=== PATIENT | male | born 1940 | race Caucasian/White ===

== ENCOUNTER → 2023-05-22 18:16 | Outpatient (REF) | payer OTHER, SELFPAY | LOC: RCS 18:16 | PROVIDERS: ATTENDING PHYSICIAN Internal Medicine Cardiovascular Disease; FAMILY PHYSICIAN Internal Medicine | DX: R01.1 Cardiac murmur, unspecified (principal) | CPT/HCPCS: 93306 ==

== ENCOUNTER 2023-05-30 06:02 | Day surgery (SDC) | payer OTHER, SELFPAY ==
[2023-05-30] VITALS (10 sets, daily range): BP systolic 103–163; BP diastolic 50–70; BMI 26.9
[2023-05-30 06:34] LABS: Glucose - Point of Care 160 mg/dl (70-99)
[2023-05-30] MEDS: NORMOSOL-R 1000 IV (06:57)
[2023-05-30] MEDS: TYLENOL 1000 MG PO (06:57)
--- NOTE | 2023-05-30 09:22 | W.SUR.PREOP ---
Pre-Operative Surgical Note
-
I have examined this patient prior to the performance of the scheduled procedure.
The patient's condition is unchanged from the time of the current History and
Physical and the patient is able to undergo the scheduled procedure.
--- NOTE | 2023-05-30 09:22 | W.IMMPOSTOP ---
Surgical Immed Post Op Note
-
Primary Surgeon: Ritesh Duran MD
Assisting Surgeon: None
Pre-op Diagnosis: Right inguinal hernia
Post-op Diagnosis: Same
Procedure Performed: Robotic right inguinal hernia repair with mesh
Anesthesia Type: General
Specimen / Cultures: None
Estimated Blood Loss: 5 cc
Complications: None
Operative Findings: Moderate sized right indirect inguinal hernia. No direct component, no femoral component, small cord lipoma removed in pieces.
POST OP PLAN:
Will discharge home with an ice pack after voiding.
--- NOTE | 2023-05-30 09:23 | OR.RPT ---
Operative Report
Operative Report
Patient Name: Ariane Victor
: 1940
Date of Operation: 05/30/2023
Preoperative Diagnosis: Reducible Inguinal hernia, right
Postoperative Diagnosis: Same
Procedure(s):
Robotic Inguinal Hernia Repair, right with mesh (BETHANY approach)
Surgeon(s):
Dr. Duran
Customer Manager(s):
CARLI Mayer
Anesthesia: General
Estimated Blood Loss: 5 cc
Urine Output: None
Drains/Lines/Implants: Large 3D Max Bard mid weight mesh
Specimens: None
Indication for surgery: The patient has a history of groin pain and noted on exam to have a right inguinal Hernia. Following review of therapeutic options they has elected to undergo a minimally invasive repair.
Findings at the time of surgery:
Patient had moderate-sized indirect inguinal Hernia. There was no direct or femoral component. There was a small cord lipoma. The inguinal floor was reinforced with a large BARD 3D max mid-weight mesh
Details of the operation:
The patient was brought to the Operating Room and placed in the supine position with the arms tucked. IV antibiotics were infused and Venodyne stockings placed. Following uneventful induction of general endotracheal anesthesia, an orogastric tube
were placed. The abdomen was prepped and draped in the usual sterile fashion. The abdomen was entered using a Veress technique which required 4 pass(es), pneumoperitoneum to 15 mmHg was obtained without difficulty. A 8mm trochar was passed through
the abdominal wall roughly 15 cm cephalad to the inguinal canal. We then confirmed the no inadvertent injury was made while passing the trocar or Veress needle. It was clear the Veress needle had not penetrated the peritoneum on the previous 3
passes. We then placed two additional 8 mm ports in the left upper and right upper quadrants. We then docked the robot with a Prograsper in the left hand port and monopolar scissors in the right. CO2 was noted to be tracking in the preperitoneal
space likely from insufflation during her first 3 attempts. A right inguinal hernia was noted. No hernia defect was noted on the left. There was no adhesions from his prior appendectomy. We then began by creating a flap at the level of the ASIS
laterally working our way medially to the medial umbilical fold. Staying onto the peritoneum we were able to circumferentially dissect around the hernia sac and and peel it off of the underlying spermatic cord and testicular vessels, taking care to
preserve them. Medially we identified the midline pubis as well as Florentin's ligament and ensured to dissect 2 cm below the pubic rim over the bladder. After exposure of the entire myopectineal orifice we identified and reduced: A medium sized
indirect inguinal hernia, no direct inguinal hernia, no femoral hernia, and a medium cord lipoma which was removed
We then fixated a large 3D max mesh with a 2-0 Vicryl stitch at coopers medially and superior medially. The flap was then closed with a running 2-0 barbed monocryl suture ensuring that the tail was cut flush with the medial fat pad so that no barbs
were exposed. During the closure of the flap an Angiocath was inserted and 30 cc of quarter percent Marcaine was instilled. The area in the flap cavity was then evacuated of air confirming that the mesh was flush and there were no folds. A few
small rents in the peritoneum was noted and closed with 2-0 Vicryl. All needles and instruments were then removed and the robot was undocked. The abdomen was then desufflated, and pneumoperitoneum evacuated. All skin sites were then closed with
4-0 Monocryl followed by Dermabond. Counts were correct and overall, the patient tolerated the procedure well and was taken to the Recovery Room postoperatively in stable condition.
I was the attending physician and performed the procedure with assistance of the LAYOUT MAN above. I was present for all portions of the case
Ritesh Duran MD
[2023-05-30 09:42] LABS: Glucose - Point of Care 166 mg/dl (70-99)
[2023-05-30 11:25] LABS: Glucose - Point of Care 164 mg/dl (70-99)
== END 2023-05-30 11:44 | disposition home or self-care (01) ==
LOC: SDS 06:02
PROVIDERS: ATTENDING PHYSICIAN Surgery
DX: K40.90 Unilateral inguinal hernia, without obstruction or gangrene, not specified as recurrent (principal); D17.6 Benign lipomatous neoplasm of spermatic cord
CPT/HCPCS: 49650; 82962; C1781

== ENCOUNTER 2025-02-11 09:22 | Inpatient (IN) | payer OTHER, SELFPAY ==
[2025-02-11] VITALS (25 sets, daily range): BP systolic 92–173; BP diastolic 41–100
--- NOTE | 2025-02-11 05:24 | ED.GENMED ---
History of Present Illness
General
Chief Complaint: Urinary Symptoms
Source: patient
Exam Limitations: none
Time Seen by Provider: 02/11/25 05:20
Nursing documentation reviewed up to this point in time: agreed with
History of Present Illness
History of Present Illness:
84 y/o male with a history of recurrent urinary tract infections, bph, diabetes, htn, hypothroid presents with acute urinary retention and hematuria. Follows with Dr. Gomez. Over the past months, he experienced bladder issues and persistent
infections every three to four months, despite various treatments including medications and cranberry supplements. Recently, a biopsy was performed due to these recurrent issues, which resulted normal findings. However, the patient began
experiencing burning and bleeding approximately 12 to 13 hours ago. He described significant discomfort with difficulty sleeping last night due to the burning pain localized to the pelvic region. He passed blood and clots and finally could not
urinate. The family reports no fever, vomiting, or abdominal pain. The patient has not experienced dizziness or lightheadedness, has been eating and drinking normally, and denied any nausea. The severity of the burning sensation has decreased
somewhat after passing some clots at home.
Review of Systems
Review of Systems
All Other Systems: ROS reviewed and negative except as documented in HPI and ROS
Phy Exam
General Physical Exam
General Presentation: well appearing and no apparent distress
General Skin: warm and dry
ENT Exam
ENT Exam: EOMI
Cardiovascular Exam
Cardiovascular Exam: regular rate/rhythm and no edema
Pulmonary Exam
Pulmonary Exam: lungs clear, no respiratory distress, no rales, no rhonchi, no wheezing and no cough
Gastrointestinal Exam
Gastrointestinal Exam: normal bowel sounds and non tender
Neurological Exam
Neurological Exam: alert, oriented x3 and CN II-XII intact
Skin Exam
Skin Exam: normal color, warm/dry and no rash
Psychiatric Exam
Psychiatric Exam: normal mood/affect
Course
Orders/Labs/Results
Orders:
Orders
02/11/25 05:39
IV Insert/Care/Rem.- Treatment PRN
02/11/25 06:24
Complete Blood Count/With Diff Urgent
Comprehensive Metabolic Panel Urgent
02/11/25 06:25
Oxycodone/Acetaminophen [Percocet 5/325] 1 tablet PO NOW STA
02/11/25 07:00
Urinalysis Reflex To Culture Urgent
Date Specimen was Collected: 02/11/25
Time Specimen was Collected: 04:34
02/11/25 07:07
Electrocardiogram (*1) Urgent
Reason for Study: Other
Other Reason for Exam: hyperkalemia
02/11/25 08:56
Admit/Transfer Patient As Directed
Co-Sign Provider:
Level of Care: Inpatient admission
Assign to:: Medical/Surgical
Physician / Group: Hospitalist
Diagnosis: Acute urinary retention
Reason for Hospitalization: Acute urinary retention
Expected length of stay greater than two midnights?: Yes
ELOS- Estimated Length of Stay in days: 2
I certify the patient meets the requirements for IP care: Yes
02/11/25 08:57
PRN Pain Medication Management As Directed
May give lesser potent ordered pain med per pt: Yes
preference::
Protocol:: Medication orders for pain may be administered in a
manner that supports deferring to patient preference
when the pt is:
- Requesting an ordered lesser potent pain medication.
Least to most potent pain medications are defined
as: acetaminophen < NSAID < tramadol < opioids
(morphine, oxycodone, hydromorphone).
- Requesting a lesser dose of the same medication IF
ORDERED.
- Requesting a less intrusive route of administration
if both routes are prescribed by the provider (PO <
IV).
02/11/25 09:00
Code Status As Directed
Resuscitation Status: Full Code
Abnormal Lab Results
02/11/25
06:24
WBC 13.3 H 10^3/uL
(4.8-10.8)
RBC 3.62 L 10^6/uL
(4.70-6.10)
Hgb 9.7 L g/dL
(13.0-18.0)
Hct 29.3 L %
(39.0-52.0)
MCH 26.8 L pg
(27.0-31.0)
RDW 14.6 H %
(11.5-14.5)
MPV 11.3 H fL
(7.4-10.4)
Abs Immat Gran (auto) 0.1 H 10^3/uL
(0-0.05)
Absolute Neuts (auto) 12.1 H 10^3/uL
(1.4-6.5)
Absolute Lymphs (auto) 0.7 L 10^3/uL
(1.2-3.4)
Immature Gran % 0.6 H %
(0-0.5)
Neutrophils % 90.4 H %
(42.2-75.2)
Lymphocytes % 5.2 L %
(20.5-51.1)
Sodium 126 L mmol/L
(135-145)
Potassium 5.6 H mmol/L
(3.5-5.1)
Chloride 97 L mmol/L
(98-107)
Carbon Dioxide 19 L mmol/L
(22-30)
Glucose 258 H mg/dl
(70-99)
02/11/25 06:24
02/11/25 06:24
Vital Signs
Initial and Last Documented VS:
Initial Vital Signs
Temp Pulse Resp BP Pulse Ox
97.6 F 96 20 150/69 99
02/11/25 03:48 02/11/25 03:48 02/11/25 03:48 02/11/25 03:48 02/11/25 03:48
Last Documented Vital Signs
Temp Pulse Resp BP Pulse Ox
97.6 F 96 20 150/63 100
02/11/25 03:48 02/11/25 03:48 02/11/25 03:48 02/11/25 09:00 02/11/25 09:30
MDM/Problems Addressed
Differential Diagnosis Includes:
ddx include bph, trauma, neurogenic bladder
MDM/Problems Addressed:
84 y/o male with a history of recurrent urinary tract infections, bph, diabetes, htn, hypothroid presents with acute urinary retention and hematuria.
[address] with out flow of bright red blood and some clots with intermittent irrigation.
CBI started.
Perocet for pain which helped with symptoms.
He has no fever.
Urology consulted.
He will require admission for continuous CBI and monitoring.
Hyponatremia noted although corrected with glucose to be 130.
Chronic conditions affecting care:
htn, hlp
*Pulse Oximetry
SaO2: 99
Oxygen Mode of Delivery: Room air
Patient hypoxic: no
*Critical Care Note
Total Time (30-74mins, 75-104mins- exclusive of procedures): Not Applicable
Data Reviewed
Review of Other/Old Records Reveals: Records (no prior discharge summary for review )
Source: patient and records
ED Attending Note
-
Portions of this chart may have been created with voice recognition software.� Occasional wrong word or��sound alike� substitutions may have occurred due to the inherent limitations of voice recognition software.
Discharge Plan
Departure
Patient Disposition: Admit
Date of Disposition: 02/11/25
Time of Disposition: 07:27
Admit to: Med/Surg
Presentation/result/management discussed w/ accepting MD/DO: Hospitalist
Patient with high blood pressure during this ER visit?: Yes
Condition: Fair
Discharge Problem:
Acute urinary retention, Gross hematuria
Interventions
Interventions:
*Risk Screen - Suicide Last Done: 02/11/25 04:01
*General Assessment Last Done: 02/11/25 04:32
*Neglect/Abuse Screening Last Done: 02/11/25 04:00
*ED- Fall Risk Assessment Last Done: 02/11/25 03:57
*ED COVID-19 Vaccine History Last Done: 02/11/25 03:57
*ED Influenza Vaccine History Last Done: 02/11/25 03:57
ED-Male Genitourinary Assessment Last Done: 02/11/25 04:32
[2025-02-11] MEDS: PERCOCET 5/325 1 TABLET PO (06:34)
[2025-02-11 06:45] LABS: Hematocrit 29.3 % (39.0-52.0); Hemoglobin 9.7 g/dL (13.0-18.0); Mean Corp Hgb Conc. 33.1 g/dL (33.0-37.0); Mean Corpuscular Volume 80.9 fL (80.0-94.0); Nucleated Red Blood Cells % 0 % (-); Platelet Count 240 10^3/uL (130-400); Red Cell Dist. Width 14.6 % (11.5-14.5)
[2025-02-11 06:58] LABS: ALT (SGPT) 16 U/L (0-50); AST (SGOT) 21 U/L (17-59); Albumin 4.1 g/dl (3.5-5.0); Alkaline Phosphatase 62 U/L (38-126); Blood Urea Nitrogen 18 mg/dl (9-20); Calcium 8.8 mg/dl (8.4-10.2); Carbon Dioxide 19 mmol/L (22-30); Chloride 97 mmol/L (98-107); Glucose 258 mg/dl (70-99); Potassium 5.6 mmol/L (3.5-5.1); Sodium 126 mmol/L (135-145); Total Protein 6.4 g/dl (6.3-8.2); eGFR > 60.00
--- NOTE | 2025-02-11 07:40 | CONS.URO ---
Consultation
-
Date/Time Consultation Performed: 02/11/2025 0715
Requesting Provider: ED
Performing Provider: Kuldeep
Reason for Consultation: hematuria
Medical History
History of Present Illness
84 yo male patient of Dr Lucas underwent 'bladder biopsy' on 02/01/2025 at '[facility] in [place]' according to son.
Hematuria with clots began last evening -- was brought to [facility] ED for convenience.
Past Medical History
Past Medical History: HTN, Hypercholesterolemia, NIDDM and Other (glaucoma)
Past Surgical History: Appendectomy and Other (right hernia repair 2023)
Allergies/Home Medications
Allergies
Allergy/AdvReac Type Severity Reaction Status Date / Time
No Known Allergies Allergy Unverified 05/30/23 06:42
Home Medications
�Medication �Instructions �Recorded �Confirmed �Type
Vitamin D3 1 dose PO WEEKLY 05/28/23 05/30/23 History
amlodipine 10 mg tablet 5 mg PO DAILY 05/28/23 05/28/23 History
aspirin 81 mg chewable tablet 81 mg PO DAILY 05/28/23 05/28/23 History
atorvastatin 40 mg tablet 40 mg PO DAILY 05/28/23 05/28/23 History
brinzolamide 1 %-brimonidine 0.2 % 1 drp ophthalmic (eye) TID 05/28/23 05/28/23 History
eye drops,suspension (Simbrinza)
carvedilol 12.5 mg tablet 12.5 mg PO BID 05/28/23 05/28/23 History
cyclosporine 0.05 % eye drops in a 1 drp ophthalmic (eye) Q12H 05/28/23 05/28/23 History
dropperette (Restasis)
diclofenac sodium 1 % topical gel 1 topical . DIRECTED 05/28/23 History
ferric maltol 30 mg capsule 30 mg PO BID 05/28/23 05/28/23 History
(Accrufer)
latanoprost 0.005 % eye drops 1 drp ophthalmic (eye) QPM 05/28/23 05/28/23 History
levothyroxine 75 mcg tablet 75 mcg PO DAILY 05/28/23 05/28/23 History
linagliptin 5 mg tablet (Tradjenta) 5 mg PO DAILY 05/28/23 05/28/23 History
metformin 500 mg tablet 500 mg PO BID 05/28/23 05/30/23 History
valsartan 80 mg tablet 120 mg PO BID 05/28/23 05/30/23 History
acetaminophen 325 mg tablet 650 mg (2 x 325 mg) PO Q6HPRN PRN 05/30/23 Rx
mild pain #14 tabs
ibuprofen 600 mg tablet 600 mg PO Q6H PRN pain #14 tabs 05/30/23 Rx
Physical Exam
Vital Signs
Vital Signs
Temp Pulse Resp BP Pulse Ox
97.6 F 96 20 153/66 100
02/11/25 03:48 02/11/25 03:48 02/11/25 03:48 02/11/25 05:56 02/11/25 06:30
Lab / Testing Results
Laboratory Results
02/11/25 06:24
02/11/25 06:24
Physical Exam
elderly male in ED bed
hard of hearing
Genito-urinary: Hill Catheter (with CBI -- pale red outflow)
Assessment / Plan
-
Hematuria s/p TURBT
Rec: CBI until outflow is pink and consistently clot-free then d/s WITH HILL -- pt to f/u with his urologist at [facility]
--- NOTE | 2025-02-11 07:46 | HPS.HSE ---
Addendum entered and electronically signed by Ayo Casey MD 02/11/25 10:10:
Seen and examined by me independently in collaboration with the medial resident Dr. Cuellar.
Past medical history/social history/medication/allergies reviewed.
Lab data and imaging data reviewed.
Limited historian because of language barrier. Grandson present at the bedside
Patient identity and cystoscopy exam and bladder biopsy suspect chronic Recurrent UTIs 10 days ago. Denies any immediate postbiopsy bleeding. Was put on 3 days of ciprofloxacin as prophylaxis. Started to have hematuria with thick clots and
retention of urine since yesterday. Had complete urinary retention with pain so presented with clot retention. Had Hill catheter placed and CBI started. Still gross hematuria.
He denies any post bladder biopsy dysuria, frequency or retentive symptoms. No fever or chills. Not on any anticoagulants. On aspirin.
Denies any nausea vomiting.
Nontoxic. Alert and oriented.
S1 plus S2 heard regular without tachycardia. Chest clear. Abdomen some suprapubic discomfort but otherwise benign.
Trace bilateral lower extremity edema. Grossly nonfocal neurologically.
Lab data noted.
Hematuria with acute clot retention status post recent bladder biopsy. Unclear etiology for late bleeding complication. Rule out UTI. Check UA with reflex culture. Continue with bladder irrigation. Appreciate urology input. Plan is to continue
CBI till his hematuria improves and goes home on Hill catheter.
Hyponatremia-moderately low. Suspect probably secondary to urinary retention. Repeat BMP post Hill catheter insertion.
Hyperkalemia-again suspect secondary to urinary retention. Hold valsartan. Repeat BMP post Hill catheter insertion.
Diabetes mellitus-hold metformin and continue Tradjenta if available
Full code.
Original Note:
Family Physician
-
Family Physician: Bhupinder Ryan
Chief Complaint
-
Acute urinary retention
History of Present Illness
84-year-old male with past medical history of hypertension, hyperlipidemia, NIDDM, hyperlipidemia, glaucoma presented to the ER reporting acute urinary retention, hematuria and dysuria. Patient speaks [place], I communicated with him and in [place],
is seen along with his grandson at bedside who also translated for him. The symptoms started yesterday at around 3 PM, patient tried to use the restroom but was not able to void completely, reports having decreased urinary stream and hematuria. He
was not able to sleep all night because of pain due to retention (suprapubic pain). Patient was seen by Dr. Gomez with Mg 10 days ago, underwent biopsy, reports it was normal. Patient had frequent UTIs in the past couple of years. Patient
denies lightheadedness/dizziness, chest pain, SOB, leg pain, bowel issues, no constipation, fever/chills, trauma/falls. Patient is on aspirin.
ED course�vital stable, afebrile, elevated white count 13.3, hemoglobin�9.7, sodium�126, potassium�5.6, BUN/creatinine�18/1.1, glucose 258.
Patient was started on CBI.
Medical History
Past Medical History
Past Medical History: Reports HTN, Hypercholesterolemia, Hypothyroidism and NIDDM
Past Surgical History: Reports Appendectomy and Other (Bladder biopsy, inguinal hernia repair)
Social History
Tobacco: Non-smoker
Alcohol: None
Drug: None
Personal:
Living: With Family
Employment: Not Employed
Family History
Family History: Not pertinent
Allergies / Home Medications
Allergies reflects when Allergies were last updated in [email or web address].
Home Medications with original date entered in [email or web address]
Allergy/Medication List:
Allergies
Allergy/AdvReac Type Severity Reaction Status Date / Time
No Known Allergies Allergy Unverified 05/30/23 06:42
Home Medications
aspirin 81 mg chewable tablet 81 mg PO DAILY Blood Clot Prevention/Tx 05/28/23
atorvastatin 40 mg tablet 40 mg PO DAILY High Cholesterol 05/28/23
brinzolamide 1 %-brimonidine 0.2 % eye drops,suspension (Simbrinza) 1 drp BOTH EYES BID Eye Condition 05/28/23
carvedilol 12.5 mg tablet 18.75 mg PO BID Heart Disease/Condition 05/28/23
cyclosporine 0.05 % eye drops in a dropperette (Restasis) 1 drp BOTH EYES Q12H Eye Condition 05/28/23
latanoprost 0.005 % eye drops 1 drp BOTH EYES QPM Eye Condition 05/28/23
levothyroxine 75 mcg tablet 75 mcg PO DAILY Thyroid 05/28/23
linagliptin 5 mg tablet (Tradjenta) 5 mg PO DAILY Diabetes 05/28/23
metformin 500 mg tablet 500 mg PO BID Diabetes 05/28/23
amlodipine 5 mg tablet (Norvasc) 5 mg PO DAILY Blood Pressure 02/11/25
dorzolamide 22.3 mg-timolol 6.8 mg/mL eye drops (Cosopt) 1 drp BOTH EYES BID Eye Condition 02/11/25
ergocalciferol (vitamin D2) 1,250 mcg (50,000 unit) capsule 1,250 mcg PO QWEEK Supplement 02/11/25
tamsulosin 0.4 mg capsule (Flomax) 0.4 mg PO DAILY Urinary Issue 02/11/25
valsartan 160 mg tablet 160 mg PO BID Blood Pressure 02/11/25
Review of Systems
-
A 12 point ROS was completed and negative except as noted: Yes
Physical Exam
Vital Signs
Vital Signs
Temp Pulse Resp BP Pulse Ox
97.6 F 96 20 153/66 100
02/11/25 03:48 02/11/25 03:48 02/11/25 03:48 02/11/25 05:56 02/11/25 06:30
Physical Exam
General: No Apparent Distress
HEENT: NormoCephalic and Atraumatic
Respiratory: Clear
Cardiac: S1/S2 and Regular Rhythm
GI: Soft, Non Tender, Non Distended and Normal Bowel Sounds
Genito-urinary: Continuous Bladder Irrigation
Skin: Warm and Dry
Neuro: Awake, Alert, Oriented and AO x 3
Laboratory Results
-
02/11/25 06:24
02/11/25 06:24
Laboratory Results
Total Bilirubin 0.6 mg/dl (0.2-1.3) 02/11/25 06:24
AST 21 U/L (17-59) 02/11/25 06:24
ALT 16 U/L (0-50) 02/11/25 06:24
Alkaline Phosphatase 62 U/L (38-126) 02/11/25 06:24
Impression/Plan
-
IMPRESSION:
84-year-old male with past medical history of hypertension, hyperlipidemia, NIDDM, glaucoma presenting with acute urinary retention, hematuria.
PLAN:
#Acute urinary retention
#Hematuria
Patient is s/p bladder biopsy for frequent UTIs/dysuria 10 days ago.
Urology consulted
Patient already started on CBI
Continue until outflow is pink/clot free.
Will hold off aspirin
#Dysuria
#Elevated white count
Likely due to UTI, patient reports having frequent UTIs in the past year.
UA pending, follow urine cultures
Will start on Rocephin
Monitor white count, fever curve
#Hyponatremia
#Hyperkalemia
Likely due to acute urinary retention
Will check BMP in 6 hours
No evidence of MACY
#NIDDM
Can continue metformin
Continue linagliptin
Will add SSI
#Hypothyroidism
Continue levothyroxine
#Essential hypertension
Continue amlodipine, valsartan, carvedilol
#Glaucoma
Continue dorzolamide�timolol eyedrops, latanoprost eyedrops.
#Hyperlipidemia
Continue atorvastatin
Diet�carb controlled
DVT prophylaxis�SCDs
Full code
[2025-02-11 13:05] LABS: Glucose - Point of Care 196 mg/dl (70-99)
[2025-02-11] MEDS: ROCEPHIN 1000 MG IV (13:49)
[2025-02-11 14:02] LABS: Hematocrit 26.3 % (39.0-52.0); Hemoglobin 8.5 g/dL (13.0-18.0)
[2025-02-11 14:25] LABS: Blood Urea Nitrogen 21 mg/dl (9-20); Calcium 8.5 mg/dl (8.4-10.2); Carbon Dioxide 19 mmol/L (22-30); Chloride 98 mmol/L (98-107); Glucose 170 mg/dl (70-99); Potassium 4.3 mmol/L (3.5-5.1); Sodium 122 mmol/L (135-145); eGFR > 60.00
[2025-02-11] MEDS: COREG PO ×2 (15:25→21:42)
--- NOTE | 2025-02-11 15:25 | PTCARENOTE ---
Rn admissions coordinator-Patient admission assessment completed remotely via phone with CATRACHITA, who indicated that patient is vegetarian. Called to primary nurse Marjorie and indicated that patient is a fall risk, and vegetarian.
--- NOTE | 2025-02-11 15:50 | PTCARENOTE ---
Pt received from ED and pulled over from stretcher to bed. Temp 101.2F, HR 113. BP 169/100. Md made aware. PRN Tylenol ordered and administered. CBI in place on admission. CBI clotted and pt moaning out in pain. Orders to irrigate obtained. CBI
irrigated by nursing and continues to obstruct. Urology notified. Dr. Walton saw pt and continued irrigating CBI. New orders obtained and pt set to OR at this time. Pt is non-Australian speaking. Family made aware and sent to waiting area. Thorough
wound assessment and weight unable to be obtained while on unit. Any discrepancy in CBI output is due to excessive irrigation by both nursing staff and urology.
[2025-02-11] MEDS: TYLENOL 650 MG PO (17:07)
--- NOTE | 2025-02-11 17:50 | PTCARENOTE ---
Pt received from ED and pulled to bed from ED stretcher. Pt temp 101.2F, HR 113, BP 169/100. Md made aware. PRN tylenol ordered and administered. The CBI in place clotted and pt moaning out in pain. Orders to irrigate obtained. CBI irrigated by
nursing staff with many clots. Pt remains uncomfortable. Urology notified and Dr. Walton saw pt @bedside who continued to hand irrigate. More orders obtained but pt sent to OR @this time. Family made aware and sent to waiting area. Throough wound
assessment unable to be obtained due to direct pt care. Any discrepancy in CBI output is due to excessive irrigation both by nursing staff and urology.
[2025-02-11 17:56] LABS: Glucose - Point of Care 194 mg/dl (70-99)
--- NOTE | 2025-02-11 17:57 | W.PN.UPDATE ---
Update Note
Progress Note Update
ctsp- fever/tachy/non draining may
see dr murillo's earlier note
it appears all day may has been functioning marginally
pt now with abd distension /tachy and fever
hand irrigated- large amount of clot recovered with improved lower abd exam- but still cath fouling with blood- clot
spoke with family/med team and anesthesia
very high risk situation- but plan to proceed to OR for cysto/clot evacuation
possibility of bladder perf reviewed (although do not suspect currently)
need for blood transfusion/IMU care and sepsis also discussed
consent signed- to OR when room available
--- NOTE | 2025-02-11 18:04 | W.CON.NEPH ---
Consultation
-
Date/Time Consultation Requested: 02/11/251726
Date/Time Consultation Performed: 02/11/251744
Requesting Provider: Ayo Roach
Performing Provider: Chhaya Stone
Reason for Consultation: Hyponatremia
Medical History
-
Chief Complaint: Acute urinary retention
History of Present Illness:
84-year-old male with past medical history of hypertension on amlodipine, carvedilol, valsartan, hyperlipidemia on atorvastatin, NIDDM metformin, tradjenta, Hypothyroidism on levothyroxine, glaucoma presented to the ER reporting acute urinary
retention, hematuria and dysuria on 02/11 Am. The Patient was seen by Dr. Gomez with Mg 10 days ago and underwent Bladder biopsy, reports it was normal. however patient had difficulty to urinate since yesterday. He noted to have acute
clot retention, urology started him on CBI. However he still continued to have the bleeding with decrease in the hemoglobin hence urology [facility] On admission his sodium was at 126, potassium 5.6, repeat labs this
afternoon at 122 hence nephrology consulted. patient reportedly in a lot of pain since the admission and he hasn't been eating or drinking as much today. According to the family patient usually drinks good amount of fluid, they do not recall
hyponatremia before. Patient does have a history of recurrent UTI in the past couple of years. no reported history of nausea or vomiting. No chest pain or shortness of breath or abdominal pain. No fevers or cough. history is limited due to
language barrier. History of cancer the chart and from the family.
Past Medical History
HTN, Hypercholesterolemia, Hypothyroidism and NIDDM
Past Surgical History: Appendectomy and Other ( Bladder biopsy, inguinal hernia repair)
Social History
Tobacco: Non-Smoker
Alcohol: None
Drug: None
Personal:
Living: With Family
Employment: Not Employed
Family History
Family History: Not Pertinent
Allergies / Home Medications
Allergy/AdvReac Type Severity Reaction Status Date / Time
No Known Allergies Allergy Unverified 05/30/23 06:42
�Medication �Instructions �Recorded �Confirmed �Type
aspirin 81 mg chewable tablet 81 mg PO DAILY Blood Clot 05/28/23 02/11/25 History
Prevention/Tx
atorvastatin 40 mg tablet 40 mg PO DAILY High Cholesterol 05/28/23 02/11/25 History
brinzolamide 1 %-brimonidine 0.2 % 1 drp BOTH EYES BID Eye Condition 05/28/23 02/11/25 History
eye drops,suspension (Simbrinza)
carvedilol 12.5 mg tablet 18.75 mg PO BID Heart 05/28/23 02/11/25 History
Disease/Condition
cyclosporine 0.05 % eye drops in a 1 drp BOTH EYES Q12H Eye Condition 05/28/23 02/11/25 History
dropperette (Restasis)
latanoprost 0.005 % eye drops 1 drp BOTH EYES QPM Eye Condition 05/28/23 02/11/25 History
levothyroxine 75 mcg tablet 75 mcg PO DAILY Thyroid 05/28/23 02/11/25 History
linagliptin 5 mg tablet (Tradjenta) 5 mg PO DAILY Diabetes 05/28/23 02/11/25 History
metformin 500 mg tablet 500 mg PO BID Diabetes 05/28/23 02/11/25 History
amlodipine 5 mg tablet (Norvasc) 5 mg PO DAILY Blood Pressure 02/11/25 02/11/25 History
dorzolamide 22.3 mg-timolol 6.8 1 drp BOTH EYES BID Eye Condition 02/11/25 02/11/25 History
mg/mL eye drops (Cosopt)
ergocalciferol (vitamin D2) 1,250 1,250 mcg PO QWEEK Supplement 02/11/25 02/11/25 History
mcg (50,000 unit) capsule
tamsulosin 0.4 mg capsule (Flomax) 0.4 mg PO DAILY Urinary Issue 02/11/25 02/11/25 History
valsartan 160 mg tablet 160 mg PO BID Blood Pressure 02/11/25 02/11/25 History
Review of Systems
-
All other systems: Negative unless noted
Physical Exam
Vital Signs
Vital Signs
Temp Pulse Resp BP Pulse Ox
101.2 F H 113 18 167/100 95
02/11/25 15:22 02/11/25 15:22 02/11/25 15:22 02/11/25 15:22 02/11/25 15:22
Lab Results
WBC 13.3 10^3/uL (4.8-10.8) H 02/11/25 06:24
RBC 3.62 10^6/uL (4.70-6.10) L 02/11/25 06:24
Plt Count 240 10^3/uL (130-400) 02/11/25 06:24
Sodium 122 mmol/L (135-145) L 02/11/25 13:53
Potassium 4.3 mmol/L (3.5-5.1) 02/11/25 13:53
Chloride 98 mmol/L (98-107) 02/11/25 13:53
Carbon Dioxide 19 mmol/L (22-30) L 02/11/25 13:53
BUN 21 mg/dl (9-20) H 02/11/25 13:53
Creatinine 1.2 mg/dL (0.7-1.3) 02/11/25 13:53
eGFR > 60.00 02/11/25 13:53
Glucose 170 mg/dl (70-99) H 02/11/25 13:53
Calcium 8.5 mg/dl (8.4-10.2) 02/11/25 13:53
Albumin 4.1 g/dl (3.5-5.0) 02/11/25 06:24
Physical Exam
General: Awake, Alert, Oriented, AOx3, No Distress and Nontoxic
HEENT: EOMI, Anicteric, Facial Symmetry and Trachea Midline
Respiratory: Clear and Normal Excursion
Cardiac: S1/S2, Regular Rate/Rhythm and No Edema
Breast: Deferred by me
Abdomen: Soft, Nontender and Nondistended
Musculoskeletal: No Cyanosis and No Edema
Skin: No Rash
Neuro: Nonfocal/Grossly Intact
Psych: Appropriate
Data Reviewed
-
Labs: Labs Reviewed by me, Discussed with Nurse and Discussed with Family
Assessment/Plan
-
IMP:
HYponatremia
Hyperkalemia
Acute urinary retention
Gross Hematuria
Anemia
Patient is s/p bladder biopsy for frequent UTIs/dysuria 10 days ago.
mild non gap met acidosis
h/o recurrent UTIs
Dysuria
Elevated white count
NIDDM
Hypothyroidism
Essential hypertension
Glaucoma
Hyperlipidemia
Plan:
A/w acute urinary retention with a clot
Ongoing hematuria despite CBI-plan noted for OR
Worsening hyponatremia, no previous baseline
Check S osmo, TSH, can not get urine studies while on CBI
need labs post op, may start hypertonic saline tonight
hyperkalemia is better
bp stable
start FR 48 ounces/day
follow h/h, prn trasnfusion
abx per primary, febrile this pm
d/w family
d/w nursing
[2025-02-11 18:15] LABS: Hematocrit 24.5 % (39.0-52.0); Hemoglobin 8.4 g/dL (13.0-18.0)
--- NOTE | 2025-02-11 19:22 | W.IMMPOSTOP ---
Surgical Immed Post Op Note
-
Primary Surgeon:
tata
Assisting Surgeon:
Pre-op Diagnosis:
clot retention
Post-op Diagnosis:
same
Procedure Performed:
cysto/clot evac and fulguration
Anesthesia Type:
gen
Specimen / Cultures:
none
Estimated Blood Loss:
400cc old clot/ 20 cc of new bleeding
Complications:
none
Operative Findings:
large organized blot
old bx site actively bleeding along with some sites at BN and prostate
to pacu- then IMU
to transfuse 2 units PRBC's
[2025-02-11 19:48] LABS: Glucose - Point of Care 166 mg/dl (70-99)
[2025-02-11] MEDS: COLACE PO (21:42)
[2025-02-11 21:46] LABS: Hematocrit 21.9 % (39.0-52.0); Hemoglobin 7.1 g/dL (13.0-18.0)
[2025-02-11 22:02] LABS: Blood Urea Nitrogen 26 mg/dl (9-20); Calcium 7.9 mg/dl (8.4-10.2); Carbon Dioxide 18 mmol/L (22-30); Chloride 101 mmol/L (98-107); Glucose 166 mg/dl (70-99); Potassium 4.7 mmol/L (3.5-5.1); Sodium 125 mmol/L (135-145); eGFR 50.18
--- NOTE | 2025-02-11 22:05 | PTCARENOTE ---
Dr. Buckner updated on most recent lab results. Will hold NSS@100ml/hr until blood transfusion is complete. Will repeat labs upon completion of blood transfusion.
--- NOTE | 2025-02-11 22:30 | PTCARENOTE ---
Received pt post op from OR. Pt post cysto with CBI in place. Pt drowsy, easily arousable. Pt is non Taiwanese speaking, Family at bedside to assist translate. Per family, pt is at baseline mentation, AAOx3, slightly forgetful to time due to surgery.
HR in the 90' in NSR with frequent PAC's on the monitor. POX 98% on RA. Lungs clear. + bowel. 24fr [address] Hill with CBI in place draining clear yellow. Left AC int capped. Left wrist int capped. Knee high seq in place. Rectal temp upon arrival
100.4. Pt positioned per comfort. Lab work obtained. Pt denies any complaints of pain at this time. call phillips in reach. Will continue to monitor.
--- NOTE | 2025-02-11 22:30 | PTCARENOTE ---
Repeat lab work reviewed. hgb 7.1. Current temp 99.5. Jose BRUNSON notified, ok to start blood transfusion. First unit now infusing as ordered. Pt sleeping comfortably. Family at bedside. Will continue to monitor.
[2025-02-11] MEDS: RESTASIS 0.05% OPHTHALMIC EMULSION BOTH EYES (23:09)
[2025-02-11] MEDS: TRUSOPT 2% OPHTHALMIC SOLUTION BOTH EYES (23:09)
[2025-02-11] MEDS: TIMOPTIC 0.5% OPHTHALMIC SOLUTION BOTH EYES (23:09)
[2025-02-11] MEDS: XALATAN OPHTHALMIC SOLUTION BOTH EYES (23:09)
[2025-02-11 23:26] LABS: Glucose - Point of Care 193 mg/dl (70-99)
[2025-02-12] VITALS (17 sets, daily range): BP systolic 98–151; BP diastolic 45–128; BMI 22.8
--- NOTE | 2025-02-12 00:54 | PTCARENOTE ---
First unit of blood transfused without complication. 2nd unit now infusing. Vital signs stable. CBI running clear. Pt continues to sleep, denies any complaints. Family remains at bedside. Will continue to monitor.
[2025-02-12] MEDS: OFIRMEV 100 IV (01:51)
[2025-02-12 05:23] LABS: Glucose - Point of Care 156 mg/dl (70-99)
[2025-02-12] MEDS: NOVOLOG FLEXPEN-LOW RESISTANCE 1 UNITS SC ×3 (05:23→17:53)
[2025-02-12 05:49] LABS: Hematocrit 28.2 % (39.0-52.0); Hemoglobin 9.7 g/dL (13.0-18.0); Mean Corp Hgb Conc. 34.4 g/dL (33.0-37.0); Mean Corpuscular Volume 81.3 fL (80.0-94.0); Nucleated Red Blood Cells % 0 % (-); Platelet Count 145 10^3/uL (130-400); Red Cell Dist. Width 14.7 % (11.5-14.5)
[2025-02-12 06:42] LABS: ALT (SGPT) 13 U/L (0-50); AST (SGOT) 21 U/L (17-59); Albumin 3.1 g/dl (3.5-5.0); Alkaline Phosphatase 45 U/L (38-126); Blood Urea Nitrogen 29 mg/dl (9-20); Calcium 8.1 mg/dl (8.4-10.2); Carbon Dioxide 18 mmol/L (22-30); Chloride 103 mmol/L (98-107); Glucose 139 mg/dl (70-99); Potassium 4.8 mmol/L (3.5-5.1); Sodium 128 mmol/L (135-145); Total Protein 5.3 g/dl (6.3-8.2); eGFR 46.19
[2025-02-12] MEDS: NSS IV (06:45)
[2025-02-12] MEDS: NSS 1000 IV ×2 (06:45→17:46)
--- NOTE | 2025-02-12 06:57 | W.PN.URO.CBU ---
Today's Communication / Plan
-
wean CBI
continue iv antibx
trend wbc/cr/hgb
Assessment / Plan
-
gross hematuria and clot retention after bladder bx- s/p cysto- clot evac
hx of recurrent UTI's- fevers
EDY
unfortunately- no urine sent from ER- now will prob not be helpful
suspect fevers due to UTI- continue antibx per med team
suspect EDY due to events of yesterday- will trend
if fevers persist or renal function does not improve over the next 24hrs- will need non contrast CT
urologic plan is once urine clear (CBI today- stop at midnight)- discharge with may and follow up iwth established urologist
Diagnosis
-
Date of Service: February 12, 2025
-
Patient Diagnosis:
hx of recurrent UTI
s/p bladder bx
clot urinary retention
Post Op Day:
cysto/clot evac 02/11
Subjective
-
pt more comfortable
urine clear on minimal drip cbi
received 2 units of prbc's
cr up slightly to 1.5
still with intermittnet fevers
Objective
-
Vital Signs
Temp Pulse Resp BP Pulse Ox
100.2 F 80 21 140/128 99
02/12/25 06:41 02/12/25 06:30 02/12/25 06:30 02/12/25 06:00 02/12/25 06:30
Intake and Output
02/10/25 02/11/25 02/12/25
06:59 06:59 06:59
Intake Total 1400 / 1400
Output Total 400 / 400 48869 / 14367
Balance -400 / -400 -08716 / -95919
Intake:
IV fluids (Total) 300 / 300
nss 200 / 200
IV piggybacks 100 / 100
Blood products 500 / 500
Blood Product Amount Infused ( 500 / 500
mL)
Packed Rbc Leukoreduced Unit 250 / 250
[id number]
Packed Rbc Leukoreduced Unit 250 / 250
[id number]
Output:
True Urine Output from CBI 400 / 400 98279 / 06690
Laboratory Results
02/12/25 05:12
Review of Systems
-
Unable to obtain full review of systems at this time due to: Language Barrier
Physical Exam
-
General - no acute distress
Abdomen - soft, non-tender
Genitalia - may in place- urine yellow
[2025-02-12] MEDS: LIPITOR 40 MG PO (09:23)
[2025-02-12] MEDS: COLACE 100 MG PO ×2 (09:23→20:27)
[2025-02-12] MEDS: FLOMAX 0.4 MG PO (09:23)
[2025-02-12] MEDS: NORVASC 5 MG PO (09:23)
[2025-02-12 09:26] LABS: Glucose - Point of Care 149 mg/dl (70-99)
[2025-02-12] MEDS: TYLENOL 650 MG PO ×2 (09:35→20:26)
[2025-02-12] MEDS: COREG 18.75 MG PO ×2 (09:35→20:27)
[2025-02-12] MEDS: SYNTHROID 75 MCG PO (09:35)
[2025-02-12] MEDS: JANUVIA 100 MG PO (09:36)
[2025-02-12] MEDS: TRUSOPT 2% OPHTHALMIC SOLUTION 1 DROP BOTH EYES ×2 (09:42→22:21)
[2025-02-12] MEDS: TIMOPTIC 0.5% OPHTHALMIC SOLUTION 1 DROP BOTH EYES ×2 (09:42→22:21)
[2025-02-12] MEDS: RESTASIS 0.05% OPHTHALMIC EMULSION 1 DROPS BOTH EYES ×2 (09:43→22:20)
[2025-02-12 10:23] LABS: Hematocrit 28.6 % (39.0-52.0); Hemoglobin 9.5 g/dL (13.0-18.0)
[2025-02-12 10:30] LABS: Glycohemoglobin (HgbA1c) 7.2 % (4.0-5.9)
[2025-02-12] MEDS: STERILE WATER FOR INJECTION 10 ML IV (12:32)
[2025-02-12] MEDS: ROCEPHIN 1000 MG IV (12:32)
[2025-02-12 12:41] LABS: Glucose - Point of Care 172 mg/dl (70-99)
--- NOTE | 2025-02-12 12:56 | CM ---
Initial assessment completed with akrlnaxn-oz-zch. Patient lives with his , son and D-I-L in a 2 story plus basement home with B/B on 1st, 2 steps to enter. [employer] patient was independent in ambulation with a SPC and required assistance with ADL's.
He also has a transport chair, SC and grab bars in the bathroom. He receives Waiver services 8 hours/day for 7 days a week. They assist with bathing, hygiene and household duties. No HC-POA. No VA benefits. No psychiatric hospitalizations. PCP is
Dr. Bhupinder Ryan. Pharmacy is [facility] in [place]. Discharge POC: TBD. Anticipate Home w no needs vs home with HH RN.
[2025-02-12 13:29] LABS: Glucose - Point of Care 142 mg/dl (70-99)
--- NOTE | 2025-02-12 14:27 | PTCARENOTE ---
Pt continues with clear urine with CBI, order to complete cbi at midnight per Dr. Walton. Pt given Tylenol for fever earlier in shift. RN relayed to Dr. Casey to remove eye drops Alphagan and Azopt from chart- pt does not take these at home and they
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 RN confirmed eye drops with family.
--- NOTE | 2025-02-12 14:44 | W.PN.HOSP.TC ---
Today's Communication/Plan
-
[facility]
Continue IV antibiotics
Assessment / Plan
Assessment / Plan
Gross hematuria with acute clot urinary retention
Status post bladder biopsy 10 days ago
Patient had significant bleeding causing acute blood loss anemia requiring blood transfusion. Needed emergency cystoscopy and fulguration of the bleeding site and clot evacuation.
Today urine is clear on CBI. Continue CBI per urology. Blood count stable post transfusion.
Fever with leukocytosis-unclear if reactive to above or true urinary infection. Patient had 3 days of ciprofloxacin postbiopsy. Fortunately no urine culture was sent on admission. Blood cultures requested. Continue with ceftriaxone. Improved
fever curve. Follow white count. Improved heart rate.
MACY. Patient creatinine bumped from 1.2-1.5. Possibly secondary to retention and blood loss. Continue to follow.
Hyponatremia-suspect secondary to urinary retention/CBI with normal saline. Improving.
Hypokalemia-resolved suspected secondary to acute urinary retention and use of ARB..
Diabetes mellitus type 2. Hemoglobin A1c 7.2. Metformin on hold.
Essential hypertension-continue with oral antihypertensives with parameters. Valsartan on hold.
Discussed with RN
[facility]
Anticipated Discharge: 24 - 48 hours
Subjective/Interval History
-
Date of Service: February 12, 2025
Difficult historian because of language barrier. Daughter on the phone with sock knitter.
Patient denies chest pain or shortness of breath. No nausea vomiting.
No abdominal pain.
Objective Data
-
Labs:
Laboratory Results
02/12/25 02/12/25 02/12/25
01:30 05:12 09:59
WBC 18.9 H
Hgb Cancelled 9.7 L D 9.5 L
Hct Cancelled 28.2 L 28.6 L
Plt Count 145 D
Sodium 128 L
Potassium 4.8
Chloride 103
Carbon Dioxide 18 L
BUN 29 H
Creatinine 1.5 H
Glucose 139 H
Calcium 8.1 L
Total Bilirubin 0.8
AST 21
ALT 13
Alkaline Phosphatase 45
Vital Signs:
Vital Signs
Temp Pulse Resp BP Pulse Ox
99.7 F 69 22 98/54 98
02/12/25 11:15 02/12/25 12:15 02/12/25 12:15 02/12/25 12:00 02/12/25 12:15
I&O
02/11/25 02/12/25 02/13/25
06:59 06:59 06:59
Intake Total 1400 / 1400 740 / 740
Output Total 400 / 400 12765 / 50226
Balance -400 / -400 -56251 / -43740 740 / 740
Physical Exam
-
General: Comfortable
Respiratory: Clear to Auscultation and Non Labored Respirations; Negative Accessory Resp Muscle Use
Cardiac: Regular Rhythm and S1/S2; Negative Tachycardic
GI: Soft and Nontender
Genito-urinary: Clear Urine and Continuous Bladder Irrigation
Neuro: AO x 3
Psych: Calm
Data Reviewed
-
Labs: Labs Reviewed by me
--- NOTE | 2025-02-12 14:50 | W.PN.NEPH.PH ---
Today's Communication / Plan
-
IV fluids
Assessment/Plan
-
IMP:
HYponatremia
Hyperkalemia
Acute urinary retention
Gross Hematuria
Anemia
Patient is s/p bladder biopsy for frequent UTIs/dysuria 10 days ago.
mild non gap met acidosis
h/o recurrent UTIs
Dysuria
Elevated white count
NIDDM
Hypothyroidism
Essential hypertension
Glaucoma
Hyperlipidemia
Plan:
CBI per urology
follow BMP
Continue IV fluids with saline
-
-
Date of Service: February 12, 2025
CC / HPI / ROS
-
Chief Complaint:
MACY
History of Present Illness:
MACY/creatinine up to 1.5
Sodium up to 128
Metabolic acidosis stable 18
BP low
On CBI status post bladder fulguration
Review of Systems:
No fever, nonoliguric
Labs
-
Labs:
WBC 18.9 10^3/uL (4.8-10.8) H 02/12/25 05:12
RBC 3.47 10^6/uL (4.70-6.10) L 02/12/25 05:12
Hgb 9.5 g/dL (13.0-18.0) L 02/12/25 09:59
Hct 28.6 % (39.0-52.0) L 02/12/25 09:59
Plt Count 145 10^3/uL (130-400) D 02/12/25 05:12
Sodium 128 mmol/L (135-145) L 02/12/25 05:12
Potassium 4.8 mmol/L (3.5-5.1) 02/12/25 05:12
Chloride 103 mmol/L (98-107) 02/12/25 05:12
Carbon Dioxide 18 mmol/L (22-30) L 02/12/25 05:12
BUN 29 mg/dl (9-20) H 02/12/25 05:12
Creatinine 1.5 mg/dL (0.7-1.3) H 02/12/25 05:12
eGFR 46.19 02/12/25 05:12
Glucose 139 mg/dl (70-99) H 02/12/25 05:12
Calcium 8.1 mg/dl (8.4-10.2) L 02/12/25 05:12
Albumin 3.1 g/dl (3.5-5.0) L 02/12/25 05:12
Physical Exam
-
Vital Signs:
Vital Signs
Temp Pulse Resp BP Pulse Ox
99.7 F 69 22 98/54 98
02/12/25 11:15 02/12/25 12:15 02/12/25 12:15 02/12/25 12:00 02/12/25 12:15
Cardiovascular:: Regular rate and rhythm
Respiratory:: Bilateral: Coarse
Lung Excursion:: Normal
Abdomen:: Nontender and Soft
Bowel Sounds:: Normal
Extremity Edema:: None: Bilateral:
--- NOTE | 2025-02-12 15:08 | PN.CDI ---
CDI
- -
CDI:
Physician Documentation Request
Admit Date: 02/11/25 09:22
Dear Doctor Jacinto,
Please review the following and provide your response in the progress notes.
Clinical Indicators:
- Patient admit for Gross hematuria with acute clot urinary retention s/p bladder biopsy
- 02/12 PN 'Fever with leukocytosis-unclear if reactive to above or true urinary infection'
- 'MACY. Patient creatinine bumped from 1.2-1.5. Possibly secondary to retention and blood loss'
- 02/12 Urology 'suspect fevers due to UTI'
- On admission: WBC 13.3, Tmax 102, HR 90-100s
- IV abx ceftriaxone
Please clarify which most accurately describes the patient:
Sepsis due to UTI with associated MACY
SIRS due to a non-infectious source with associated MACY
Other (please specify)
Use of terms such as suspected, likely, concern for, or probable (associated with a specific diagnosis that is being evaluated, monitored, or treated as if it exists) are acceptable and can be coded in the inpatient setting, when documented at the
time of discharge.
Thank you,
Barbara Love RN
CDI Specialist
Please use your independent medical judgment in providing your response.
--- NOTE | 2025-02-12 16:47 | PTCARENOTE ---
Gave report to receiving 4 gabriel RN. Pt being transported with cbi, insulin pen, and eye drops
[2025-02-12 17:47] LABS: Glucose - Point of Care 176 mg/dl (70-99)
--- NOTE | 2025-02-12 18:21 | PTCARENOTE ---
Received patient from [facility] AAOX[facility]. Pt speaks Esthela. Family interprets. Oriented to room. Hill intact with CBI running slowly. Made patient comfortable. Cont to assess patient status.
[2025-02-12] MEDS: XALATAN OPHTHALMIC SOLUTION 1 DROP BOTH EYES (20:27)
[2025-02-12 21:16] LABS: Glucose - Point of Care 187 mg/dl (70-99)
[2025-02-13] MEDS: NSS 1000 IV ×2 (05:02→15:23)
[2025-02-13] MEDS: SYNTHROID 75 MCG PO (05:05)
[2025-02-13 06:30] LABS: Hematocrit 26.5 % (39.0-52.0); Hemoglobin 8.4 g/dL (13.0-18.0); Mean Corp Hgb Conc. 31.7 g/dL (33.0-37.0); Mean Corpuscular Volume 85.2 fL (80.0-94.0); Platelet Count 136 10^3/uL (130-400); Red Cell Dist. Width 15.1 % (11.5-14.5)
[2025-02-13 06:54] LABS: Blood Urea Nitrogen 27 mg/dl (9-20); Calcium 7.8 mg/dl (8.4-10.2); Carbon Dioxide 21 mmol/L (22-30); Chloride 105 mmol/L (98-107); Estimated Creatinine Clearance 43 ml/min; Glucose 145 mg/dl (70-99); Potassium 4.2 mmol/L (3.5-5.1); Sodium 129 mmol/L (135-145); eGFR 50.18
[2025-02-13 07:50] VITALS: BP 123/68
[2025-02-13 08:31] LABS: Glucose - Point of Care 153 mg/dl (70-99)
[2025-02-13] MEDS: COREG 18.75 MG PO ×2 (08:49→21:18)
[2025-02-13] MEDS: JANUVIA 100 MG PO (08:49)
[2025-02-13] MEDS: RESTASIS 0.05% OPHTHALMIC EMULSION 1 DROPS BOTH EYES ×2 (08:51→21:18)
[2025-02-13] MEDS: COLACE 100 MG PO ×2 (08:51→21:18)
[2025-02-13] MEDS: LIPITOR 40 MG PO (08:51)
[2025-02-13] MEDS: NORVASC 5 MG PO (08:51)
[2025-02-13] MEDS: FLOMAX 0.4 MG PO (08:51)
[2025-02-13] MEDS: TRUSOPT 2% OPHTHALMIC SOLUTION 1 DROP BOTH EYES ×2 (08:52→21:20)
[2025-02-13] MEDS: TIMOPTIC 0.5% OPHTHALMIC SOLUTION 1 DROP BOTH EYES ×2 (08:52→21:19)
[2025-02-13] MEDS: NOVOLOG FLEXPEN-LOW RESISTANCE 1 UNITS SC ×2 (08:58→13:13)
--- NOTE | 2025-02-13 11:12 | W.PN.URO.CBU ---
Today's Communication / Plan
-
stop cbi keep may teav=ck=h foleyy and leg bag care
Assessment / Plan
-
gross hematuria and clot retention after bladder bx- s/p cysto- clot evac
hx of recurrent UTI's- fevers
EDY
unfortunately- no urine sent from ER- now will prob not be helpful
suspect fevers due to UTI- continue antibx per med team
suspect EDY due to events of yesterday- will trend
if fevers persist or renal function does not improve over the next 24hrs- will need non contrast CT
urologic plan is once urine clear (CBI today- stop at midnight)- discharge with may and follow up iwth established urologist
Diagnosis
-
Date of Service: February 13, 2025
-
Patient Diagnosis:
Post Op Day:
Patient Diagnosis:
hx of recurrent UTI
s/p bladder bx
clot urinary retention
Post Op Day:
cysto/clot evac 02/11
Subjective
-
urine clear asx
Objective
-
Vital Signs
Temp Pulse Resp BP Pulse Ox
99.3 F 72 16 123/68 98
02/13/25 07:50 02/13/25 08:49 02/13/25 07:50 02/13/25 08:49 02/13/25 07:50
Intake and Output
02/12/25 02/13/25 02/14/25
06:59 06:59 05:59
Intake Total 1400 / 1400 2160 / 2160
Output Total 60376 / 50212 2475 / 2475
Balance -47959 / -21136 -315 / -315
Intake:
Oral fluids 960 / 960
IV fluids (Total) 300 / 300 1200 / 1200
nss 200 / 200
IV piggybacks 100 / 100
Blood products 500 / 500
Blood Product Amount Infused ( 500 / 500
mL)
Packed Rbc Leukoreduced Unit 250 / 250
[id number]
Packed Rbc Leukoreduced Unit 250 / 250
[id number]
Output:
Urine, May 450 / 450
True Urine Output from CBI 03300 / [id number] 2024
Laboratory Results
02/13/25 05:37
02/13/25 05:37
Review of Systems
-
: Difficulty Voiding
Physical Exam
-
General - well developed, well nourished, no acute distress
Chest - clear bilaterally
Abdomen - soft, non-tender, positive bowel sounds, no CVAT, no incisional pain or distention
Genitalia - normal
Rectal - normal
Skin - warm & dry with no rash
Neuro - AOx3, no motor deficits
Extremities - no clubbing, no cyanosis, no edema
Incision - clean, dry
Dressing - clean, dry, intact
Counseling
-
stop cbi teach may and leg bag care
Care Review
Data Reviewed
Discussed with: Hospitalist, Nursing and Family
[2025-02-13 11:54] LABS: Glucose - Point of Care 165 mg/dl (70-99)
--- NOTE | 2025-02-13 11:54 | W.PN.NEPH.PH ---
Today's Communication / Plan
-
follow BMP
Assessment/Plan
-
IMP:
HYponatremia
Hyperkalemia
Acute urinary retention
Gross Hematuria
Anemia
Patient is s/p bladder biopsy for frequent UTIs/dysuria 10 days ago.
mild non gap met acidosis
h/o recurrent UTIs
Dysuria
Elevated white count
NIDDM
Hypothyroidism
Essential hypertension
Glaucoma
Hyperlipidemia
Plan:
CBI per urology
follow BMP
Continue IV fluids with saline given high UOP
-
-
Date of Service: February 13, 2025
CC / HPI / ROS
-
Chief Complaint:
MACY
History of Present Illness:
MACY/creatinine stable 1.4
Na up to 129
Metabolic acidosis stable 21
BP stable
On CBI status post bladder fulguration
Review of Systems:
No fever, nonoliguric
Labs
-
Labs:
WBC 12.9 10^3/uL (4.8-10.8) H 02/13/25 05:37
RBC 3.11 10^6/uL (4.70-6.10) L 02/13/25 05:37
Hgb 8.4 g/dL (13.0-18.0) L 02/13/25 05:37
Hct 26.5 % (39.0-52.0) L 02/13/25 05:37
Plt Count 136 10^3/uL (130-400) 02/13/25 05:37
Sodium 129 mmol/L (135-145) L 02/13/25 05:37
Potassium 4.2 mmol/L (3.5-5.1) 02/13/25 05:37
Chloride 105 mmol/L (98-107) 02/13/25 05:37
Carbon Dioxide 21 mmol/L (22-30) L 02/13/25 05:37
BUN 27 mg/dl (9-20) H 02/13/25 05:37
Creatinine 1.4 mg/dL (0.7-1.3) H 02/13/25 05:37
eGFR 50.18 02/13/25 05:37
Glucose 145 mg/dl (70-99) H 02/13/25 05:37
Calcium 7.8 mg/dl (8.4-10.2) L 02/13/25 05:37
Albumin 3.1 g/dl (3.5-5.0) L 02/12/25 05:12
Physical Exam
-
Vital Signs:
Vital Signs
Temp Pulse Resp BP Pulse Ox
99.3 F 72 16 123/68 98
02/13/25 07:50 02/13/25 08:49 02/13/25 07:50 02/13/25 08:49 02/13/25 07:50
Cardiovascular:: Regular rate and rhythm
Respiratory:: Bilateral: Coarse
Lung Excursion:: Normal
Abdomen:: Nontender and Soft
Bowel Sounds:: Normal
Extremity Edema:: None: Bilateral:
[2025-02-13] MEDS: STERILE WATER FOR INJECTION 10 ML IV (13:16)
[2025-02-13] MEDS: ROCEPHIN 1000 MG IV (13:16)
--- NOTE | 2025-02-13 13:30 | W.PN.HOSP.TC ---
Addendum entered and electronically signed by Ayo Casey MD 02/13/25 16:21:
Sepsis secondary to UTI with associated MACY
Original Note:
Today's Communication/Plan
-
Continue with IV antibiotics.
Follow BMP
Assessment / Plan
Assessment / Plan
Gross hematuria with acute clot urinary retention
Status post bladder biopsy 10 days ago
Patient had significant bleeding causing acute blood loss anemia requiring blood transfusion. Needed emergency cystoscopy and fulguration of the bleeding site and clot evacuation.
Today urine is clear on CBI. Going to come off of CBI today.Pt will leave home with Hill and follow with Urology.
Blood count stable post transfusion.
Fever with leukocytosis-unclear if reactive to above or true urinary infection. Patient had 3 days of ciprofloxacin postbiopsy. Fortunately no urine culture was sent on admission. Blood cultures requested. Continue with ceftriaxone. Improved
fever curve. Improving white count. Improved heart rate.
MACY. Patient creatinine bumped from 1.2-1.5. Possibly secondary to retention and blood loss. Continue to follow. IV fluids per Renal.
Hyponatremia-suspect secondary to urinary retention/CBI with normal saline. Improving.
Hyperkalemia-resolved suspected secondary to acute urinary retention and use of ARB..
Diabetes mellitus type 2. Hemoglobin A1c 7.2. Metformin on hold.
Essential hypertension-continue with oral antihypertensives with parameters. Valsartan on hold.
Discussed with family
Anticipated Discharge: 24 - 48 hours
Subjective/Interval History
-
Date of Service: February 13, 2025
History is from the ifmnwyoz-cx-bvh at bedside.
Patient feels a improved. No fever or chills further.
Denies any shortness of breath or chest pain.
Appetite is better. No nausea vomiting.
Objective Data
-
Labs:
Laboratory Results
02/13/25
05:37
WBC 12.9 H
Hgb 8.4 L
Hct 26.5 L
Plt Count 136
Sodium 129 L
Potassium 4.2
Chloride 105
Carbon Dioxide 21 L
BUN 27 H
Creatinine 1.4 H
Glucose 145 H
Calcium 7.8 L
Vital Signs:
Vital Signs
Temp Pulse Resp BP Pulse Ox
99.3 F 72 16 123/68 98
02/13/25 07:50 02/13/25 08:49 02/13/25 07:50 02/13/25 08:49 02/13/25 07:50
I&O
02/12/25 02/13/25 02/14/25
06:59 06:59 05:59
Intake Total 1400 / 1400 2160 / 2160
Output Total 48357 / 62128 2475 / 2475
Balance -74658 / -67654 -315 / -315
Physical Exam
-
General: No Apparent Distress
HEENT: Moist Mucous Membranes
Respiratory: Clear to Auscultation and Non Labored Respirations; Negative Accessory Resp Muscle Use
Cardiac: Regular Rhythm and S1/S2
GI: Soft and Nontender
Musculoskeletal: No Edema
Neuro: AO x 3
Psych: Calm; Negative Confused
Data Reviewed
-
Labs: Labs Reviewed by me
[2025-02-13 15:37] VITALS: BP 136/55
[2025-02-13 16:57] LABS: Glucose - Point of Care 204 mg/dl (70-99)
[2025-02-13] MEDS: TYLENOL 650 MG PO (16:57)
[2025-02-13] MEDS: NOVOLOG FLEXPEN-LOW RESISTANCE 2 UNITS SC (16:59)
[2025-02-13] MEDS: XALATAN OPHTHALMIC SOLUTION 1 DROP BOTH EYES (21:21)
[2025-02-13 21:24] LABS: Glucose - Point of Care 195 mg/dl (70-99)
[2025-02-13 23:24] VITALS: BP 125/62
[2025-02-14] MEDS: NSS 1000 IV ×2 (01:40→12:26)
[2025-02-14] MEDS: SYNTHROID 75 MCG PO (04:50)
[2025-02-14 07:31] VITALS: BP 140/62
[2025-02-14 08:36] LABS: Glucose - Point of Care 147 mg/dl (70-99)
[2025-02-14 08:57] LABS: Hematocrit 25.5 % (39.0-52.0); Hemoglobin 8.4 g/dL (13.0-18.0); Mean Corp Hgb Conc. 32.9 g/dL (33.0-37.0); Mean Corpuscular Volume 83.6 fL (80.0-94.0); Platelet Count 155 10^3/uL (130-400); Red Cell Dist. Width 15.1 % (11.5-14.5)
[2025-02-14] MEDS: NOVOLOG FLEXPEN-LOW RESISTANCE SC ×2 (09:00→13:28)
[2025-02-14 09:37] LABS: Blood Urea Nitrogen 17 mg/dl (9-20); Calcium 7.4 mg/dl (8.4-10.2); Carbon Dioxide 18 mmol/L (22-30); Chloride 107 mmol/L (98-107); Estimated Creatinine Clearance 54 ml/min; Glucose 136 mg/dl (70-99); Potassium 4.0 mmol/L (3.5-5.1); Sodium 129 mmol/L (135-145); eGFR > 60.00
[2025-02-14] MEDS: COREG 18.75 MG PO ×2 (10:40→20:57)
[2025-02-14] MEDS: COLACE 100 MG PO ×2 (10:40→20:57)
[2025-02-14] MEDS: FLOMAX 0.4 MG PO (10:41)
[2025-02-14] MEDS: NORVASC 5 MG PO (10:41)
[2025-02-14] MEDS: JANUVIA 100 MG PO (10:41)
[2025-02-14] MEDS: LIPITOR 40 MG PO (10:41)
[2025-02-14] MEDS: RESTASIS 0.05% OPHTHALMIC EMULSION 1 DROPS BOTH EYES ×2 (10:41→20:57)
[2025-02-14] MEDS: DRISDOL (VITAMIN D2) 50000 UNITS PO (10:41)
[2025-02-14] MEDS: FLUSH (NSS) 1 FLUSH IV (10:42)
[2025-02-14] MEDS: TIMOPTIC 0.5% OPHTHALMIC SOLUTION 1 DROP BOTH EYES ×2 (10:42→20:58)
[2025-02-14] MEDS: TRUSOPT 2% OPHTHALMIC SOLUTION 1 DROP BOTH EYES ×2 (10:43→20:58)
--- NOTE | 2025-02-14 11:27 | W.PN.URO.CBU ---
Today's Communication / Plan
-
home with may expexct some blood in may
Assessment / Plan
-
gross hematuria and clot retention after bladder bx- s/p cysto- clot evac
hx of recurrent UTI's- fevers
EDY
unfortunately- no urine sent from ER- now will prob not be helpful
suspect fevers due to UTI- continue antibx per med team
suspect EDY due to events of yesterday- will trend
if fevers persist or renal function does not improve over the next 24hrs- will need non contrast CT
urologic plan is once urine clear (CBI today- stop at midnight)- discharge with may and follow up iwth established urologist
Diagnosis
-
Date of Service: February 14, 2025
-
Patient Diagnosis:
Post Op Day:
Patient Diagnosis:
Post Op Day:
Patient Diagnosis:
hx of recurrent UTI
s/p bladder bx
clot urinary retention
Post Op Day:
cysto/clot evac 02/11
Subjective
-
urine clear
Objective
-
Vital Signs
Temp Pulse Resp BP Pulse Ox
98.3 F 60 16 140/62 99
02/14/25 07:31 02/14/25 10:40 02/14/25 07:31 02/14/25 10:40 02/14/25 07:31
Intake and Output
02/13/25 02/14/25 02/15/25
06:59 05:59 06:59
Intake Total 2160 / 2160 1560 / 1560
Output Total 2475 / 2475 1800 / 1800
Balance -315 / -315 -240 / -240
Intake:
Oral fluids 960 / 960 360 / 360
IV fluids (Total) 1200 / 1200 1200 / 1200
Output:
Urine, May 450 / 450 1800 / 1800
True Urine Output from CBI 2024
Other:
Number of approximated MODERATE 1
amounts of urine
Laboratory Results
02/14/25 07:28
02/14/25 07:28
Review of Systems
-
: Difficulty Voiding
Physical Exam
-
General - well developed, well nourished, no acute distress
Chest - clear bilaterally
Abdomen - soft, non-tender, positive bowel sounds, no CVAT, no incisional pain or distention
Genitalia - normal
Rectal - normal
Skin - warm & dry with no rash
Neuro - AOx3, no motor deficits
Extremities - no clubbing, no cyanosis, no edema
Incision - clean, dry
Dressing - clean, dry, intact
Counseling
-
foleyand leg bag care
Care Review
Data Reviewed
Discussed with: Nursing and Family
--- NOTE | 2025-02-14 12:58 | W.PN.HOSP.TC ---
Today's Communication/Plan
-
CW IV Ceftrixaone
Follow BMP
DC planning
Assessment / Plan
Assessment / Plan
Gross hematuria with acute clot urinary retention
Status post bladder biopsy 10 days ago
Patient had significant bleeding causing acute blood loss anemia requiring blood transfusion. Needed emergency cystoscopy and fulguration of the bleeding site and clot evacuation.
Today urine is clear ; off of CBI today.Pt will leave home with Hill and follow with Urology.
Blood count stable post transfusion.
Fever with leukocytosis-unclear if reactive to above or true urinary infection. Patient had 3 days of ciprofloxacin postbiopsy. unfortunately no urine culture was sent on admission. Blood cultures requested- neg so far. Continue with
ceftriaxone. F/u fever curve today -if recurrent switch abx. Normalized white count. Normalized heart rate.
MACY. Patient creatinine bumped from 1.2-1.5. Possibly secondary to retention and blood loss. Improved Cr 1.1. IV fluids per Renal.
Hyponatremia-suspect secondary to urinary retention/CBI with normal saline. Improving- 129 today
Hyperkalemia-resolved suspected secondary to acute urinary retention and use of ARB..
Diabetes mellitus type 2. Hemoglobin A1c 7.2. Resume Metformin .
Essential hypertension-continue with oral antihypertensives with parameters. Valsartan on hold.
Discussed with family
Likely DC in am if no further fevers .
Anticipated Discharge: Within 24 hours
Subjective/Interval History
-
Date of Service: February 14, 2025
Son-in-law at bedside who is an air valve repairer.
at bedside to but does not speak Serbian.
Patient today fever and chills last night. None today.
No nausea vomiting. Tolerating diet.
Denies any abdominal pain. CBI off. Hill catheter in place. Denies any diarrhea.
Objective Data
-
Labs:
Laboratory Results
02/14/25
07:28
WBC 8.7
Hgb 8.4 L
Hct 25.5 L
Plt Count 155
Sodium 129 L
Potassium 4.0
Chloride 107
Carbon Dioxide 18 L
BUN 17
Creatinine 1.1
Glucose 136 H
Calcium 7.4 L
Vital Signs:
Vital Signs
Temp Pulse Resp BP Pulse Ox
98.3 F 60 16 140/62 99
02/14/25 07:31 02/14/25 10:40 02/14/25 07:31 02/14/25 10:40 02/14/25 07:31
I&O
02/13/25 02/14/25 02/15/25
06:59 05:59 06:59
Intake Total 2160 / 2160 1560 / 1560
Output Total 2475 / 2475 1800 / 1800
Balance -315 / -315 -240 / -240
Physical Exam
-
General: No Apparent Distress
HEENT: Moist Mucous Membranes
Respiratory: Clear to Auscultation and Non Labored Respirations; Negative Accessory Resp Muscle Use
Cardiac: Regular Rhythm and S1/S2; Negative Tachycardic
GI: Soft, Nontender, Nondistended and Normal Bowel Sounds
Genito-urinary: No Costovertebral Tender
Neuro: AO x 3
Psych: Calm; Negative Confused (per family at bedside)
Data Reviewed
-
Labs: Labs Reviewed by me
[2025-02-14 13:28] LABS: Glucose - Point of Care 149 mg/dl (70-99)
[2025-02-14] MEDS: ROCEPHIN 1000 MG IV (13:29)
[2025-02-14] MEDS: STERILE WATER FOR INJECTION 10 ML IV (13:29)
[2025-02-14] MEDS: FLUSH (NSS) 2 FLUSH IV (13:30)
--- NOTE | 2025-02-14 13:47 | W.PN.NEPH.PH ---
Today's Communication / Plan
-
follow BMP
Assessment/Plan
-
IMP:
HYponatremia
Hyperkalemia
Acute urinary retention
Gross Hematuria
Anemia
Patient is s/p bladder biopsy for frequent UTIs/dysuria 10 days ago.
mild non gap met acidosis
h/o recurrent UTIs
Dysuria
Elevated white count
NIDDM
Hypothyroidism
Essential hypertension
Glaucoma
Hyperlipidemia
Plan:
check Urine studies to determine cause of hyponatremia
follow BMP
Continue IV fluids with saline given high UOP, reduce rate
-
-
Date of Service: February 14, 2025
CC / HPI / ROS
-
Chief Complaint:
MACY
History of Present Illness:
MACY/creatinine down to 1.1
Na up to 129 stavle
Metabolic acidosis stable 18
BP stable
CBI off
Review of Systems:
No fever, nonoliguric
Labs
-
Labs:
WBC 8.7 10^3/uL (4.8-10.8) 02/14/25 07:28
RBC 3.05 10^6/uL (4.70-6.10) L 02/14/25 07:28
Hgb 8.4 g/dL (13.0-18.0) L 02/14/25 07:28
Hct 25.5 % (39.0-52.0) L 02/14/25 07:28
Plt Count 155 10^3/uL (130-400) 02/14/25 07:28
Sodium 129 mmol/L (135-145) L 02/14/25 07:28
Potassium 4.0 mmol/L (3.5-5.1) 02/14/25 07:28
Chloride 107 mmol/L (98-107) 02/14/25 07:28
Carbon Dioxide 18 mmol/L (22-30) L 02/14/25 07:28
BUN 17 mg/dl (9-20) 02/14/25 07:28
Creatinine 1.1 mg/dL (0.7-1.3) 02/14/25 07:28
eGFR > 60.00 02/14/25 07:28
Glucose 136 mg/dl (70-99) H 02/14/25 07:28
Calcium 7.4 mg/dl (8.4-10.2) L 02/14/25 07:28
Albumin 3.1 g/dl (3.5-5.0) L 02/12/25 05:12
Physical Exam
-
Vital Signs:
Vital Signs
Temp Pulse Resp BP Pulse Ox
98.3 F 60 16 140/62 99
02/14/25 13:00 02/14/25 10:40 02/14/25 07:31 02/14/25 10:40 02/14/25 10:00
Cardiovascular:: Regular rate and rhythm
Respiratory:: Bilateral: Coarse
Lung Excursion:: Normal
Abdomen:: Nontender and Soft
Bowel Sounds:: Normal
Extremity Edema:: None: Bilateral:
[2025-02-14 15:28] VITALS: BP 137/58
[2025-02-14 17:45] LABS: Glucose - Point of Care 151 mg/dl (70-99)
[2025-02-14] MEDS: NOVOLOG FLEXPEN-LOW RESISTANCE 1 UNITS SC (17:45)
[2025-02-14] MEDS: GLUCOPHAGE 500 MG PO (17:45)
[2025-02-14] MEDS: XALATAN OPHTHALMIC SOLUTION 1 DROP BOTH EYES (20:57)
[2025-02-14 21:35] LABS: Glucose - Point of Care 169 mg/dl (70-99)
[2025-02-14 23:38] VITALS: BP 138/62
[2025-02-15] MEDS: SYNTHROID 75 MCG PO (05:11)
[2025-02-15] MEDS: NSS 1000 IV (05:14)
[2025-02-15 07:12] LABS: Blood Urea Nitrogen 12 mg/dl (9-20); Calcium 7.6 mg/dl (8.4-10.2); Carbon Dioxide 20 mmol/L (22-30); Chloride 109 mmol/L (98-107); Estimated Creatinine Clearance 60 ml/min; Glucose 139 mg/dl (70-99); Potassium 4.1 mmol/L (3.5-5.1); Sodium 132 mmol/L (135-145); eGFR > 60.00
[2025-02-15 07:30] VITALS: BP 159/64
[2025-02-15 07:34] LABS: Glucose - Point of Care 157 mg/dl (70-99)
[2025-02-15] MEDS: NOVOLOG FLEXPEN-LOW RESISTANCE 1 UNITS SC (09:20)
[2025-02-15] MEDS: LIPITOR 40 MG PO (09:20)
[2025-02-15] MEDS: COLACE 100 MG PO (09:20)
[2025-02-15] MEDS: COREG 18.75 MG PO (09:21)
[2025-02-15] MEDS: FLOMAX 0.4 MG PO (09:21)
[2025-02-15] MEDS: RESTASIS 0.05% OPHTHALMIC EMULSION 1 DROPS BOTH EYES (09:22)
[2025-02-15] MEDS: JANUVIA 100 MG PO (09:22)
[2025-02-15] MEDS: GLUCOPHAGE 500 MG PO (09:22)
[2025-02-15] MEDS: NORVASC 5 MG PO (09:22)
[2025-02-15] MEDS: TIMOPTIC 0.5% OPHTHALMIC SOLUTION 1 DROP BOTH EYES (09:23)
[2025-02-15] MEDS: TRUSOPT 2% OPHTHALMIC SOLUTION 1 DROP BOTH EYES (09:23)
--- NOTE | 2025-02-15 10:05 | W.PN.URO.CBU ---
Today's Communication / Plan
-
home with may
Assessment / Plan
-
gross hematuria and clot retention after bladder bx- s/p cysto- clot evac
hx of recurrent UTI's- fevers
EDY
unfortunately- no urine sent from ER- now will prob not be helpful
suspect fevers due to UTI- continue antibx per med team
suspect EDY due to events of yesterday- will trend
if fevers persist or renal function does not improve over the next 24hrs- will need non contrast CT
urologic plan is once urine clear (CBI today- stop at midnight)- discharge with may and follow up iwth established urologist
Diagnosis
-
Date of Service: February 15, 2025
-
Patient Diagnosis:
Post Op Day:
Patient Diagnosis:
Post Op Day:
Patient Diagnosis:
Post Op Day:
Patient Diagnosis:
hx of recurrent UTI
s/p bladder bx
clot urinary retention
Post Op Day:
cysto/clot evac 02/11
Subjective
-
no hematuria no fever
Objective
-
Vital Signs
Temp Pulse Resp BP Pulse Ox
98.2 F 56 18 159/64 97
02/15/25 07:30 02/15/25 09:21 02/15/25 07:30 02/15/25 09:21 02/15/25 07:30
Intake and Output
02/14/25 02/15/25 02/16/25
05:59 06:59 06:59
Intake Total 1560 / 1560 2760 / 2760
Output Total 1800 / 1800 2100 / 2100
Balance -240 / -240 660 / 660
Intake:
Oral fluids 360 / 360 960 / 960
IV fluids (Total) 1200 / 1200 1800 / 1800
Output:
Urine, May 1800 / 1800 2099 / 2099
Other:
Number of approximated MODERATE 1 1
amounts of urine
Laboratory Results
02/14/25 07:28
02/15/25 06:25
Review of Systems
-
: No Symptoms
Physical Exam
-
General - well developed, well nourished, no acute distress
Chest - clear bilaterally
Abdomen - soft, non-tender, positive bowel sounds, no CVAT, no incisional pain or distention
Genitalia - normal
Rectal - normal
Skin - warm & dry with no rash
Neuro - AOx3, no motor deficits
Extremities - no clubbing, no cyanosis, no edema
Incision - clean, dry
Dressing - clean, dry, intact
Counseling
-
teach may and leg bag care
[2025-02-15 10:23] VITALS: BP 160/59
--- NOTE | 2025-02-15 10:57 | CM ---
Reviewed chart. Introduced myself to pt and . There is a language barrier. contacted the grandson Lainey and I informed him that PT rec Home with VN. Provided resources [facility], [facility], [facility] care. Son will speak to his mother about
selecting and agency and he will get back to me.
Pt continues with IV ABX and may catheter. No fever today. Watching labs for MACY.
Plan: Home with no needs vs VN
[2025-02-15 11:47] LABS: Glucose - Point of Care 134 mg/dl (70-99)
[2025-02-15] MEDS: NOVOLOG FLEXPEN-LOW RESISTANCE SC (11:51)
--- NOTE | 2025-02-15 12:15 | W.PN.HOSP.TC ---
Today's Communication/Plan
-
Monitor vital signs see plan
Discussed with patient and spouse, discharged today with outpatient follow-up
May on discharge per urology
Patient will follow urology outpatient
Switch antibiotics to p.o. cefdinir
Time of discharge 38 minutes
Assessment / Plan
Assessment / Plan
Gross hematuria with acute clot urinary retention
Status post bladder biopsy 10 days ago
Patient had significant bleeding causing acute blood loss anemia requiring blood transfusion. Needed emergency cystoscopy and fulguration of the bleeding site and clot evacuation.
Today urine is clear ; off of CBI.Pt will leave home with May and follow with Urology.
Blood count stable post transfusion.
Fever with leukocytosis--likely secondary to UTI. Patient had 3 days of ciprofloxacin postbiopsy. unfortunately no urine culture was sent on admission. Blood cultures requested- neg so far. on ceftriaxone. No fever from 48 hours. Switch
antibiotics to oral. Tolerated ceftriaxone. f/u fever curve
MACY. Resolved. patient creatinine bumped from 1.2-1.5. Possibly secondary to retention and blood loss. Improved Cr 1.1. IV fluids per Renal.
Hyponatremia-suspect secondary to urinary retention/CBI with normal saline. Improving, 132. Repeat BMP outpatient. Nephrology following
Hyperkalemia-resolved suspected secondary to acute urinary retention and use of ARB..
Diabetes mellitus type 2. Hemoglobin A1c 7.2. Resume Metformin .
Essential hypertension-continue with oral antihypertensives with parameters. Restart valsartan
Discussed with family. DC today
Discussed with urology; discharged with May catheter and follow op with dr Gomez who did biopsies he can take may out
General: No Apparent Distress
HEENT: Moist Mucous Membranes
Respiratory: Clear to Auscultation and Non Labored Respirations; Negative Accessory Resp Muscle Use
Cardiac: Regular Rhythm and S1/S2; Negative Tachycardic
GI: Soft, Nontender, Nondistended and Normal Bowel Sounds
Genito-urinary: No Costovertebral Ten,+ may
Neuro: AO x 3
Psych: Calm
Anticipated Discharge: Today
Subjective/Interval History
-
Date of Service: February 15, 2025
Denies pain
Objective Data
-
Labs:
Laboratory Results
02/15/25
06:25
Sodium 132 L
Potassium 4.1
Chloride 109 H
Carbon Dioxide 20 L
BUN 12
Creatinine 1.0
Glucose 139 H
Calcium 7.6 L
Vital Signs:
Vital Signs
Temp Pulse Resp BP Pulse Ox
98.2 F 56 18 159/64 97
02/15/25 07:30 02/15/25 09:21 02/15/25 07:30 02/15/25 09:21 02/15/25 07:30
I&O
02/14/25 02/15/25 02/16/25
05:59 06:59 06:59
Intake Total 1560 / 1560 2760 / 2760
Output Total 1800 / 1800 2099 / 2099
Balance -240 / -240 660 / 660
--- NOTE | 2025-02-15 12:24 | W.DCSUMMARY ---
Discharge Summary
Discharge Data
Date of Admission: 02/11/25
Date of Discharge: 02/15/25
-
Pending Results: No
Hospital Course
84-year-old male with past medical history of diabetes mellitus, recent bladder biopsy came to the hospital with postop bleeding. Patient was seen by urology who administered a Hill catheter. Patient also underwent clot evacuation. Over time his
hematuria continue to improve. Urology recommended Hill catheter on discharge. He also had acute kidney injury which continued to improve over time with fluids. On this hospitalization he also had fever which was likely thought was secondary to
urinary tract infection. Unfortunately no urine culture was sent on admission however patient responded to ceftriaxone which was transitioned to p.o. cefdinir prior to discharge. He also had hyponatremia which continue to improve over time. Once
his symptoms continue to improve, he was then discharged home with Hill catheter and instructions to follow-up with all his physicians outpatient.
Discharge Plan
-
Patient Disposition: Home (Routine Discharge)
Discharge Diagnosis/Procedures: Gross hematuria with acute urinary retention
Urinary tract infection
Hyponatremia
Diet: As tolerated and 2 Gram Sodium
Activity: As tolerated
Driving Restrictions: As prior to admission
Bathing Restrictions: None
Blood Work: BMP later this week with primary care provider
Referrals:
Jam Lucas MD [Non-Admitting Privileges, Urology]
Referral Note: call [facility] to schedule f/u
Bhupinder Ryan MD [Family Provider, Internal Medicine] - in less than 1 week
Prescriptions:
New
docusate sodium 100 mg Capsule
100 mg PO BID Qty: 0 0RF
cefdinir 300 mg capsule
300 mg PO BID Qty: 12 0RF
Probiotic 10 billion cell capsule
10,000 mmu cells PO DAILY Qty: 10 0RF
Continued
latanoprost 0.005 % Drops
1 drp BOTH EYES QPM
atorvastatin 40 mg Tablet
40 mg PO DAILY
metformin 500 mg Tablet
500 mg PO BID
carvedilol 12.5 mg Tablet
18.75 mg PO BID
levothyroxine 75 mcg Tablet
75 mcg PO DAILY
aspirin 81 mg Tablet,Chewable
81 mg PO DAILY
cyclosporine [Restasis] 0.05 % Dropperette
1 drp BOTH EYES Q12H
Tradjenta 5 mg Tablet
5 mg PO DAILY
Simbrinza 1-0.2 % Drops,Suspension
1 drp BOTH EYES BID
tamsulosin [Flomax] 0.4 mg Capsule
0.4 mg PO DAILY
dorzolamide-timolol [Cosopt] 22.3-6.8 mg/mL Drops
1 drp BOTH EYES BID
ergocalciferol (vitamin D2) 1,250 mcg (50,000 unit) Capsule
1,250 mcg PO QWEEK
valsartan 160 mg Tablet
160 mg PO BID
amlodipine [Norvasc] 5 mg Tablet
5 mg PO DAILY
Simbrinza 1-0.2 % Drops,Suspension
See Rx Instructions .ROUTE .COMPLEX
Rx Instructions:
'1 drop BID in both eyes'
Discharge Orders:
Discharge Patient (As Directed); Ordered 02/15/25
Ordered By: Clayton Campuzano
Discharge Date and Time
Discharge Date/Time: 02/15/25 13:35
Print Language: MAURITANIAN
[2025-02-15 12:45] VITALS: BP 146/67
[2025-02-15] MEDS: STERILE WATER FOR INJECTION 10 ML IV (12:46)
[2025-02-15] MEDS: ROCEPHIN 1000 MG IV (12:46)
[2025-02-15] MEDS: FLUZONE HIGH-DOSE 2025-26 0.5 ML IM (12:54)
--- NOTE | 2025-02-15 13:30 | VNURNOTE ---
Chart reviewed. Liaison was notified that patient was currrently being DC'ed and to speak with grandson. Called elizabeth Ariana. He could not talk, was helping pt to car. He was agreeable to VN and to a start of care visit within 1-2 days. He
requested to call me back. [facility]. [facility]erral [facility] in [facility].
--- NOTE | 2025-02-18 13:32 | VNURNOTE ---
Late entry: Rec'ed message from elizabeth Lane declining VN services. This author attempted to call him back. No answer. This author left message confirming that I am cancelling our services. In the message, advised him to follow up with
Urology for may cath. Advised him to reach out to Urology or PCP if he changes his mind and wants VN again. Urologist office notified that family declining services.
== END 2025-02-15 13:35 | disposition home or self-care (01) | DRG 907 ==
LOC: 4 EAST ACU 09:22
PROVIDERS: Physician Assistant; Registered Nurse; Specialist; Student in an Organized Health Care Education/Training Program; ADMITTING PHYSICIAN Internal Medicine; ATTENDING PHYSICIAN Internal Medicine; CONSULT PHYSICIAN Internal Medicine; CONSULT PHYSICIAN Specialist; EMERGENCY PHYSICIAN Emergency Medicine; FAMILY PHYSICIAN Internal Medicine
PROC: 0TCB8ZZ Extirpation of Matter from Bladder, Via Natural or Artificial Opening Endoscopic (ICD-10-PCS; 2025-02-11)
PROC: 0W3R8ZZ Control Bleeding in Genitourinary Tract, Via Natural or Artificial Opening Endoscopic (ICD-10-PCS; 2025-02-11)
PROC: 30233N1 Transfusion of Nonautologous Red Blood Cells into Peripheral Vein, Percutaneous Approach (ICD-10-PCS; 2025-02-11)
PROC: 3E02340 Introduction of Influenza Vaccine into Muscle, Percutaneous Approach (ICD-10-PCS; 2025-02-15)
DX: N99.820 Postprocedural hemorrhage of a genitourinary system organ or structure following a genitourinary system procedure (principal); A41.9 Sepsis, unspecified organism; R65.20 Severe sepsis without septic shock; D62 Acute posthemorrhagic anemia; E87.1 Hypo-osmolality and hyponatremia; N39.0 Urinary tract infection, site not specified; N17.9 Acute kidney failure, unspecified; R31.0 Gross hematuria; E87.6 Hypokalemia; E78.5 Hyperlipidemia, unspecified; R33.9 Retention of urine, unspecified; I10 Essential (primary) hypertension; E87.5 Hyperkalemia; E11.9 Type 2 diabetes mellitus without complications; E03.9 Hypothyroidism, unspecified; H40.9 Unspecified glaucoma; Y84.8 Other medical procedures as the cause of abnormal reaction of the patient, or of later complication, without mention of misadventure at the time of the procedure; N40.1 Benign prostatic hyperplasia with lower urinary tract symptoms; Z79.899 Other long term (current) drug therapy; Z79.82 Long term (current) use of aspirin; Z87.440 Personal history of urinary (tract) infections
CPT/HCPCS: 51702; 51798; 80048; 80053; 82570; 82962; 83036; 83930; 83935; 84300; 84439; 84443; 85014; 85018; 85025; 85027; 86850; 86900; 86901; 86920; 87040; 90662; 93005; 97162; 99285; G0008; P9016